=== PATIENT | female | born 1960 | race Caucasian/White ===

== ENCOUNTER 2020-10-03 11:22 | Day surgery (SDC) | payer MEDICARE, BC ==
[~2020-10-03] VITALS: Ht 160 cm; Wt 68.2 kg
[~2020-10-03 11:22] MED LIST: AMITIZA PO; BORON PO; BUPR150T2 PO; CHLCLI PO; DIPH50 PO; ESZO2 PO; FISH OIL PO; FLAX PO; HYOS.125 SL; LEVSOD50 PO; LYSINE; POLY17UD PO; PSEU30 PO; SAM E PO; SENN187 PO; TRAZ100 PO
--- NOTE | 2020-10-03 12:16 | NUR ---
10/03/20 1216 Donna Bajwa 1 MG VERSED IV & 50 MCG IV FENTANYL GIVEN BY RN PER DR. LATIF IN OR ROOM PRIOR TO PROCEDURE START. VSS.
== END 2020-10-03 12:31 | disposition home or self-care (01) ==
LOC: ORSCSDS 11:22
PROVIDERS: Anesthesiology
PROC: 3E0R33Z Introduction of Anti-inflammatory into Spinal Canal, Percutaneous Approach (ICD-10-PCS; principal; 2020-10-03 12:15)
DX: M54.12 Radiculopathy, cervical region (principal); B19.10 Unspecified viral hepatitis B without hepatic coma; E03.9 Hypothyroidism, unspecified; F41.8 Other specified anxiety disorders; K21.9 Gastro-esophageal reflux disease without esophagitis; Z79.899 Other long term (current) drug therapy
CPT/HCPCS: J1040; J2250; J3010; J7040; J7120